=== PATIENT | female | born 1990 | race Caucasian/White ===

== ENCOUNTER 2025-01-24 21:07 | Observation (INO) | payer BC ==
[2025-01-24] MEDS ORDERED: Ketorolac Tromethamine 30 MG (1 mL) VIAL ONE (21:24)
[2025-01-24] MEDS ORDERED: Melatonin 3 MG TAB PO PRN (21:59)
[2025-01-24 22:08] LABS: #Basophils 0.04 10x3/uL (0.0-0.2); #Eosinophils 0.12 10x3/uL (0.0-0.5); #Monocytes 0.65 10x3/uL (0.0-1.1); #Neutrophils 8.02 10x3/uL (1.5-8.4); %Basophils 0.4 % (0.0-2.0); %Eosinophils 1.1 % (0.0-6.0); %Lymphocytes 19.2 % (18.0-47.0); %Monocytes 5.9 % (0.0-10.0); %Neutrophils 73.1 % (40.0-75.0); Hematocrit 36.1 % (34.9-44.5); Hemoglobin 11.7 g/dL (12.0-15.5); Mean Corpuscular Hemoglobin 27.3 pg (27.0-33.0); Mean Corpuscular Volume 84.3 fL (81.6-98.3); Platelet Count 219 10x3/uL (150-450); Red Blood Cell (RBC) Count 4.28 10x6/uL (3.90-5.03); White Blood Cell (WBC) Count 10.96 10x3/uL (3.5-10.5)
[2025-01-24 22:22] LABS: Anion Gap 15 mmol/L (10-20); BUN (Urea Nitrogen) 8 mg/dL (7.0-18.7); Calc. Creatinine Clearance 0 mL/min (70-130); Calcium 8.2 mg/dL (7.8-10.44); Carbon Dioxide 21 mmol/L (22-29); Chloride 108 mmol/L (98-107); Glucose 78 mg/dL (70-105); Potassium 3.6 mmol/L (3.5-5.1); Sodium 140 mmol/L (136-145)
[2025-01-24 23:21] VITALS: BMI 21.7
[2025-01-25] MEDS: Ketorolac Tromethamine 30 MG (1 mL) VIAL IVP PRN (03:03)
[2025-01-25] MEDS: Ondansetron PF 4 MG/2 ML Vial IVP PRN (07:52)
[2025-01-25] MEDS ORDERED: Metoclopramide HCl 10 MG (2 mL) VIAL IVP SCH (08:00)
[2025-01-25] MEDS ORDERED: diphenhydrAMINE 50 MG/ML VIAL IVP PRN (08:00)
[2025-01-25] MEDS ORDERED: Metoclopramide HCl 10 MG (2 mL) VIAL IVP PRN (08:27)
[2025-01-25] MEDS: Famotidine/PF 20 mg/2ml Vial SLOW IVP SCH (09:00)
[2025-01-25] MEDS ORDERED: Ondansetron PF 4 MG/2 ML Vial ONE (10:58)
[2025-01-25] MEDS ORDERED: PROPOFOL 20 ML ONE (10:58)
[2025-01-25] MEDS ORDERED: Rocuronium Bromide 10 MG/ML (10ML VIAL) ONE (10:59)
[2025-01-25] MEDS ORDERED: PHENYLEPHRINE-NS 100 MCG/ML 10 ML SYRINGE ONE (11:36)
[2025-01-25] MEDS ORDERED: CEFAZOLIN 1 GM VIAL ONE (11:40)
[2025-01-25] MEDS ORDERED: SUGAMMADEX SODIUM 200 MG/2 ML VIAL ONE (12:23)
[2025-01-25] MEDS ORDERED: Ketorolac Tromethamine 30 MG (1 mL) VIAL ONE (12:23)
[2025-01-25] MEDS: HYDROcodone/Acetaminophen 5/325 mg Tablet PO PRN (15:08)
[2025-01-25] MEDS: Ibuprofen 200 MG TAB PO PRN (17:42)
[2025-01-25 20:32] VITALS: BP 106/64; TEMP 98.4
== END 2025-01-25 20:25 | disposition home or self-care (01) ==
LOC: CSHERS 21:07 → CSHPED 22:01
PROVIDERS: ADMIT Obstetrics & Gynecology; ATTEND Obstetrics & Gynecology
PROC: 0UT64ZZ Resection of Left Fallopian Tube, Percutaneous Endoscopic Approach (ICD-10-PCS; principal; 2025-01-25)
PROC: 0UT14ZZ Resection of Left Ovary, Percutaneous Endoscopic Approach (ICD-10-PCS; principal; 2025-01-25)
DX: N70.11 Chronic salpingitis (principal); N83.512 Torsion of left ovary and ovarian pedicle; N80.122 Deep endometriosis of left ovary; N83.12 Corpus luteum cyst of left ovary; N83.02 Follicular cyst of left ovary; N73.6 Female pelvic peritoneal adhesions (postinfective); F90.9 Attention-deficit hyperactivity disorder, unspecified type; Z87.59 Personal history of other complications of pregnancy, childbirth and the puerperium; Z88.8 Allergy status to other drugs, medicaments and biological substances; Z79.899 Other long term (current) drug therapy
CPT/HCPCS: 76856; 80048; 85025; 88305; 93976; 96375; 96376; G0378; J0665; J0690; J1100; J1308; J1885; J2250; J2270; J2272; J2405; J2704; J3010; J7120

== ENCOUNTER 2025-06-10 08:40 | Day surgery (SDC) | payer BC ==
[2025-06-03 13:23] VITALS: BMI 20.3
[2025-06-10] MEDS ORDERED: Gabapentin 300 MG CAP ONE (09:09)
[2025-06-10] MEDS ORDERED: Famotidine/PF 20 mg/2ml Vial ONE (09:10)
[2025-06-10 09:21] LABS: Hematocrit 35.6 % (34.9-44.5); Hemoglobin 11.9 g/dL (12.0-15.5); Mean Corpuscular Hemoglobin 29.0 pg (27.0-33.0); Mean Corpuscular Volume 86.8 fL (81.6-98.3); Platelet Count 179 10x3/uL (150-450); Red Blood Cell (RBC) Count 4.10 10x6/uL (3.90-5.03); White Blood Cell (WBC) Count 5.69 10x3/uL (3.5-10.5)
[2025-06-10] MEDS ORDERED: Bupivacaine HCl 0.5%/Epinephrine 1:200,000/PF 30 ml Vial ONE (09:41)
[2025-06-10] MEDS ORDERED: Ondansetron PF 4 MG/2 ML Vial ONE (09:56)
[2025-06-10] MEDS ORDERED: SUGAMMADEX SODIUM 200 MG/2 ML VIAL ONE (09:56)
[2025-06-10] MEDS ORDERED: Rocuronium Bromide 10 MG/ML (10ML VIAL) ONE (09:56)
[2025-06-10] MEDS ORDERED: PROPOFOL 20 ML ONE (09:56)
[2025-06-10] MEDS ORDERED: Ketorolac Tromethamine 30 MG (1 mL) VIAL ONE (09:56)
[2025-06-10] MEDS ORDERED: Lidocaine 2% PF 100 mg/5 ml Syringe ONE (09:56)
[2025-06-10] MEDS ORDERED: CEFAZOLIN 2 GM VIAL ONE (10:14)
[2025-06-10] MEDS ORDERED: HYDROmorphone 0.5 MG/0.5 ML SYRINGE ONE ×2 (10:39→13:01)
[2025-06-10 10:44] LABS: BHCG - Serum Negative (NEGATIVE); Pregs Control Background? CLEAR/WHITE (CLR/WHITE); Pregs Control Bar Appear? YES (CONTROL BAR)
[2025-06-10] MEDS ORDERED: PHENYLEPHRINE-NS 100 MCG/ML 10 ML SYRINGE ONE (11:13)
== END 2025-06-10 14:38 | disposition home or self-care (01) ==
LOC: CSHSDC 08:40
PROVIDERS: ATTEND Student in an Organized Health Care Education/Training Program
PROC: 0D5W0ZZ Destruction of Peritoneum, Open Approach (ICD-10-PCS; principal; 2025-06-10)
DX: N80.30 Endometriosis of pelvic peritoneum, unspecified (principal); Z88.8 Allergy status to other drugs, medicaments and biological substances
CPT/HCPCS: 36415; 84702; 84703; 85027; 86850; 86900; 86901; 88305; C1889; J1171; J1308; J1885; J2003; J2250; J2405; J2704; J3010